=== PATIENT | female | born 2000 | race Caucasian/White ===

== ENCOUNTER 2023-06-19 08:01 | Emergency (ER) | payer OTHER, SELFPAY ==
[2023-06-19 08:03] VITALS: BP 118/77; PULSE 89; RESP 17; TEMP 36.7; O2SAT 99
--- NOTE | 2023-06-19 08:38 | DI.RAD_ITS ---
Exam(s) XR KNEE RT 3V AP,LAT,SUKUMAR EXAM: XR KNEE RT 3V AP,LAT,SUKUMAR CLINICAL HISTORY: right knee pain. TECHNIQUE: 2D digital imaging was performed. COMPARISON: No exams were available for comparison FINDINGS: 3 views No evidence of acute fracture or prominent joint effusion. No osseous lesions. No osteochondral def ects. No joint space narrowing. Bone density normal. IMPRESSION: No acute osseous findings in the knee. DATA REPOSITORY: RADIATION DOSE DELIVERED:
--- NOTE | 2023-06-19 09:19 | NUR.NOTE ---
Gave Referral to Care Management-Needs PCP establish care and routine follow up Nursing Note:
--- NOTE | 2023-06-20 20:11 | W.ED.GENAD ---
Discharge Plan Disposition Patient Disposition: Home Discharge Details Clinical Impression: Knee sprain Primary Care Provider: None,None ED Provider: Nellie Ojeda Home Meds and New Rx's Prescriptions: Continued omeprazole 20 mg capsule,delayed release(DR/EC) 20 mg PO DAILY melatonin 2.5 mg Tablet,Chewable 2.5 mg PO QHS Discharge Instructions Instructions: Knee Sprain (ED) Additional Instructions: Take ibuprofen and Tylenol as needed for pain Ice, elevate, rest Use your brace during the day, weight-bear as tolerated Follow-up with PCP or orthopedics for reassessment in 1 to 2 weeks and imaging at their discretion with persistent discomfort Stand Alone Forms: Work Release Referrals: Jesu Garcia MD [ [facility] STAFF PHYSICIAN] - Discharge Data Discharge Date/Time-TO BE ENTERED AT DEPARTURE: 06/19/23 09:28 Medical Decision Making 22-year-old female presenting with right knee injury, x-ray of right knee does not show evidence of acute abnormality radiology interpretation my review Placed in a right knee hinged splint Ibuprofen and Tylenol encouraged Return precautions reviewed and patient expressed understanding Repeat imaging in 1 week with persistent symptoms HPI General Date/Time Provider Initiated Documentation: 06/19/23 08:25. HPI Narrative: This 22-year-old female presents with right knee injury. She states her knee buckled inward. Now she is having pain with flexion and extension of her right knee. Related Data Home Medications Medication Instructions Recorded Confirmed omeprazole 20 mg capsule,delayed 20 mg PO DAILY 04/19/23 06/19/23 release melatonin 2.5 mg chewable tablet 2.5 mg PO QHS 06/19/23 06/19/23 Allergies Allergy/AdvReac Type Severity Reaction Status Date / Time oranges Allergy Uncoded 06/19/23 08:08 General Stated Complaint: Orthopedic JOVANA: 4 PFSH All Active Problems (Updated 06/19/23 @ 09:20 by PAULA Gardner) Knee sprain (Acute) Social History Smoking/Tobacco Use Status: Never Smoking risk assessment performed?: Yes Alcohol Intake: never Drug use: Never Substance use type: does not use Course Vital Signs Vital signs: Vital Signs Temperature 36.7 C 06/19/23 08:03 Pulse 89 06/19/23 08:03 Respiratory Rate 17 06/19/23 08:03 Blood Pressure 118/77 06/19/23 08:03 Pulse Oximetry 99 06/19/23 08:03 Temperature 36.7 C 06/19/23 08:03 Temperature Source Temporal Artery Scan 06/19/23 08:03 Pulse 89 06/19/23 08:03 Respiratory Rate 17 06/19/23 08:03 Respiratory Effort Normal 06/19/23 08:06 Blood Pressure 118/77 06/19/23 08:03 Blood Pressure Position Sitting 06/19/23 08:03 Pulse Oximetry 99 06/19/23 08:03 Oxygen Delivery Method Room Air 06/19/23 08:03 Oxygen Flow Rate 0 06/19/23 08:03 Pain Level 2 06/19/23 08:06
== END 2023-06-19 09:28 | disposition home or self-care (01) ==
PROVIDERS: Emergency Provider Physician Assistant
DX: S83.91XA Sprain of unspecified site of right knee, initial encounter (principal); X58.XXXA Exposure to other specified factors, initial encounter
CPT/HCPCS: 29515; 73562; 99283

== ENCOUNTER 2023-07-03 11:49 | Outpatient (CLI) | payer OTHER, SELFPAY ==
--- NOTE | 2023-07-03 11:15 | DI.RAD_ITS ---
Exam(s) XR KNEE RT 2V AP,LAT EXAM: XR KNEE RT 2V AP,LAT CLINICAL HISTORY: RIGHT KNEE PAIN. TECHNIQUE: 2D digital imaging was performed of the right knee. Two views obtained. Merchant, and AP views were obtained. COMPARISON: CR XR KNEE RT 3V AP,LAT,SUKUMAR from 06/19/2023 FINDINGS: BONES: No acute fracture is present. No bony destructive lesion is seen. JOINTS: The knee is normally aligned. SOFT TISSUE: Normal. IMPRESSION: No acute abnormality is seen on this limited examination. DATA REPOSITORY: RADIATION DOSE DELIVERED:
== END 2023-07-03 11:50 | disposition home or self-care (01) ==
LOC: DIORS 11:49
PROVIDERS: PCP Physician Assistant Medical; Visit Provider Physician Assistant
DX: M25.561 Pain in right knee (principal)
CPT/HCPCS: 73560

== ENCOUNTER 2023-10-18 12:15 | Outpatient (REF) | payer OTHER, SELFPAY ==
--- NOTE | 2023-10-18 11:45 | PAPFT_PTH ---
PATIENT: Katlin Miguel LOC: NCN #:[id number] AGE/SX: 23/F ROOM: RE10/18/[address]: Emily Fontanez : 2000 BED: DIS: 10/18/2023 SPEC #: [id number] RECD: 10/18/23 18:20 STATUS: CANDIS REChristo #: [id number] BRANDIN: 10/18/23 11:[address]: Emily Fontanez DEPT: [facility] Cytology RECD BY: Nellie Bearden Tissues: 1 - CX/ENDOCX FOR PAP SMEARS Procedures: PAP THIN PREP/UVM Screening Comments: [id number]
[2023-10-18 16:55] LABS: Calculated LDL 138 mg/dL (<100); Cholesterol 195 mg/dL (<200); Glucose 89 mg/dL (74-106); HDL Cholesterol 37 mg/dL (40-60); TSH (W/Ref FT4) 1.35 uIU/mL (0.36-3.74); Triglyceride 104 mg/dL (<150)
[2023-10-18 17:03] LABS: Vitamin D 25 Total 11.2 ng/mL (30-100)
== END 2023-10-18 12:16 | disposition home or self-care (01) ==
LOC: NCHCN 12:15
PROVIDERS: PCP Nurse Practitioner Family; Visit Provider Nurse Practitioner Family
DX: Z00.00 Encounter for general adult medical examination without abnormal findings (principal)
CPT/HCPCS: 80061; 82306; 82947; 88142; 84443

== ENCOUNTER 2024-04-22 11:41 | Outpatient (REF) | payer OTHER, SELFPAY ==
[2024-04-22 16:19] LABS: Abs Immature Grans 0.01 10^3/uL (0.0-0.06); Absolute Basophil Count 0.04 10^3/uL (0.0-0.2); Absolute Eosinophil Count 0.07 10^3/uL (0.0-0.7); Absolute Lymphocyte Count 1.71 10^3/uL (1.2-3.4); Absolute Neutrophil Count 3.81 10^3/uL (1.2-6.7); Basophils % 0.7 %; Eosinophils % 1.2 %; HCT 32.5 % (36.0-46.0); HGB 9.5 g/dL (11.2-15.7); Immature Grans % 0.2 %; Lymphocytes % 28.3 %; MCH 20.4 pg (27.0-33.0); MCHC 29.2 % (32.0-36.0); MCV 70 fL (80-95); MPV 11.4 fL (8.0-11.0); Monocytes % 6.6 %; Platelet Count 285 10^3/uL (130-400); RBC 4.66 10^6/uL (3.93-5.22); RDW 17.2 % (11.7-14.6); RDW-SD 42.5 fL; WBC 6.04 10^3/uL (4.4-10.8)
[2024-04-22 16:21] LABS: Anion Gap 6.9 mmol/L (3-11); BUN 9 mg/dL (7-18); CO2 28.1 mmol/L (21.0-32.0); CREATININE 0.8 mg/dL (0.55-1.02); Calcium 9.2 mg/dL (8.5-10.1); Chloride 104 mmol/L (98-107); Estimated GFR 106.11 (mL/min/1.73m2); Glucose 103 mg/dL (74-106); Potassium 3.6 mmol/L (3.5-5.1); Sodium 139 mmol/L (136-145); Vitamin D 25 Total 19.1 ng/mL (30-100)
[2024-04-22 17:14] LABS: Anisocytosis 1+; Diff Comment RBC Morph Reviewed; Hypochromasia 1+; Microcytosis 1+
[2024-04-23 10:03] LABS: Iron 21 ug/dL (50-170)
[2024-04-23 10:16] LABS: Ferritin 7 ng/mL (8-252)
== END 2024-04-22 11:42 | disposition home or self-care (01) ==
LOC: NCHCN 11:41
PROVIDERS: PCP Nurse Practitioner Family; Visit Provider Physician Assistant Medical
DX: R60.9 Edema, unspecified (principal); E55.9 Vitamin D deficiency, unspecified; D64.9 Anemia, unspecified
CPT/HCPCS: 80048; 82306; 82728; 83540; 85025

== ENCOUNTER 2024-06-03 15:33 | Outpatient (REF) | payer OTHER, SELFPAY ==
[2024-06-03 21:56] LABS: HGB 10.5 g/dL (11.2-15.7); MCH 22.1 pg (27.0-33.0); MCV 74 fL (80-95); RBC 4.76 10^6/uL (3.93-5.22); RDW-SD 53.7 fL; WBC 8.95 10^3/uL (4.4-10.8)
[2024-06-03 22:48] LABS: RDW 20.8 % (11.7-14.6)
[2024-06-03 23:17] LABS: Vitamin D 25 Total 21.4 ng/mL (30-100)
[2024-06-03 23:48] LABS: Iron 101 ug/dL (50-170); Total Iron Binding Capacity 362 ug/dL (250-450)
[2024-06-04 11:55] LABS: Ferritin 17 ng/mL (8-252)
== END 2024-06-03 15:34 | disposition home or self-care (01) ==
LOC: NCHCN 15:33
PROVIDERS: PCP Nurse Practitioner Family; Visit Provider Physician Assistant Medical
DX: E61.1 Iron deficiency (principal); E55.9 Vitamin D deficiency, unspecified
CPT/HCPCS: 82306; 85027; 82728; 83540; 83550

== ENCOUNTER 2024-06-15 14:29 | Emergency (ER) | payer OTHER, SELFPAY ==
[2024-06-15 14:31] VITALS: BP 130/82; PULSE 101; RESP 14; TEMP 36.2; O2SAT 98
--- NOTE | 2024-06-15 15:00 | ED.GENADUL_ITS ---
Discharge Plan Disposition Patient Disposition: Home Condition: Stable Discharge Details Clinical Impression: Acute streptococcal pharyngitis Primary Care Provider: Emily Murray ED Provider: Belen Rubio Home Meds and New Rx's Prescriptions: New amoxicillin-pot clavulanate 875-125 mg tablet 1 tab PO BID 10 Days Qty: 20 0RF No Action omeprazole 20 mg capsule,delayed release(DR/EC) 20 mg PO DAILY melatonin 2.5 mg Tablet,Chewable 2.5 mg PO QHS ergocalciferol (vitamin D2) 1,250 mcg (50,000 unit) capsule 1,250 mcg PO .weekly Patient Comments: TAKE 1 CAPSULE BY MOUTH EVERY WEEK cholecalciferol (vitamin D3) 50 mcg (2,000 unit) capsule 50 mcg PO DAILY Patient Comments: TAKE ONE CAPSULE BY MOUTH EVERY DAY DIRECTED Discharge Instructions Instructions: Strep Throat ED Additional Instructions: Gargle with warm salt water 3 times daily. Please take Tylenol or Ibuprofen with food every 4-6 hours as needed for pain and swelling. You were given a steroid here in the department to help with decreasing the inflammation in your throat. At this time the rapid swab is negative however it has been sent for culture and based on your clinical presentation and symptoms I will treat you as if you do have strep throat. Monoscreen is negative. Follow up with primary care provider in 3-5 days. Return to ED sooner if any wor sening or concerns. Stand Alone Forms: Work Release Referrals: Emily Murray [Primary Care Provider] - 3 days Discharge Data Discharge Date/Time-TO BE ENTERED AT DEPARTURE: 06/15/24 15:46 HPI General Mode of arrival: ambulatory . Date/Time Provider Initiated Documentation: 06/15/24 14:35 . Limitations to Documentation: no limitations . Information obtained by: patient, RN notes reviewed and old records reviewed . HPI Narrative: 23-year-old female presents to the ER with a chief complaint of sore throat swollen tonsils which began on Sunday. Subjective fever and chills. Patient does have muffled voice, hard time swallowing her secretions. Denies cough, lungs are CTA. Related Data Home Medications ?Medication ?Instructions ?Recorded ?Confirmed omeprazole 20 mg capsule,delayed 20 mg PO DAILY 04/19/23 06/15/24 release melatonin 2.5 mg chewable tablet 2.5 mg PO QHS 06/19/23 06/15/24 amoxicillin 875 mg-potassium 1 tab PO BID 10 days #20 tabs 06/15/24 clavulanate 125 mg tablet cholecalciferol (vitamin D3) 50 50 mcg PO DAILY 06/15/24 06/15/24 mcg (2,000 unit) capsule ergocalciferol (vitamin D2) 1,250 1,250 mcg PO .weekly 06/15/24 06/15/24 mcg (50,000 unit) capsule Previous Rx's ?Medication ?Instructions ?Recorded amoxicillin 875 mg-potassium 1 tab PO BID 10 days #20 tabs 06/15/24 clavulanate 125 mg tablet Allergies Allergy/AdvReac Type Severity Reaction Status Date / Time oranges Allergy Swelling/Ed Uncoded 06/15/24 14:34 talat General Stated Complaint: Sorethroat JOVANA: 4 Review of Systems ENT Ears, Nose, Mouth, and Throat: Reports change in voice, Reports sore throat and Reports throat swelling Allergic/Immunologic Allergic/Immunologic: Reports throat swelling Exam Const General: well developed and well groomed Nutritional Appearance: obese Orientation: alert, awake and oriented x3 HENMT Head: normal to inspection Ears: hearing grossly normal bilaterally and external ears normal General nose exam: external nose normal Face and sinus: normal facial exam Mouth: oral mucosae normal, lip normal and tongue normal Teeth and gingiva: dentition normal Throat: abnormal tonsil bilaterally exudates and hypertrophy 2+, posterior oropharynx abnormal erythema and exudates, uvula not displaced and no uvular edema Neck Neck: normal visual inspection and full ROM Resp Effort & Inspection: normal respiratory effort Auscultation: clear to auscultation bilaterally Cardio Rhythm: regular rhythm Heart Sounds: S1 normal and S2 normal Course Vital Signs Vital signs: Vital Signs Temperature 36.2 C L 06/15/24 14:31 Pulse 101 H 06/15/24 14:31 Respiratory Rate 14 06/15/24 14:31 Blood Pressure 130/82 06/15/24 14:31 Pulse Oximetry 98 06/15/24 14:31 Temperature 36.2 C L 06/15/24 14:31 Temperature Source Oral 06/15/24 14:31 Pulse 101 H 06/15/24 14:31 Respiratory Rate 14 06/15/24 14:31 Blood Pressure 130/82 06/15/24 14:31 Blood Pressure Position Sitting 06/15/24 14:31 Pulse Oximetry 98 06/15/24 14:31 Oxygen Delivery Method Room Air 06/15/24 14:31 Oxygen Flow Rate 0 06/15/24 14:31 Pain Level 7 06/15/24 14:31 Lab/Test Results Lab/Test Results: 06/15/24 14:33 Pharynx Group A Streptococcus Culture - Pending POC Strep Test-LIYAH(Rapid) Start: 06/15/24 14:36 Freq: .Rapid Strep Test Status: Active Protocol: Document 06/15/24 14:47 CB (Rec: 06/15/24 14:47 [id number]) Strep test-LIYAH(Rapid)-POC POC-Strep test-LIYAH (Rapid) Negative POC-Strep test-LIYAH (Rapid) Negative Medical Decision Making 23-year-old female presents to the ER with a chief complaint of sore throat swollen tonsils which began on Sunday. Subjective fever and chills. Patient does have muffled voice, hard time swallowing her secretions. Denies cough, lungs are CTA. Negative rapid strep, however patient does have positive exudate 2+ bilateral tonsils noted. Will give Augmentin and dexamethasone here in the department. Schuyler test ordered. And swab was sent for a culture. Schuyler negative. Will treat as strep. Patient given Augmentin here and a prescription at discharge. This text was generated using [employer] dictation system, please disregard any oddities of phrase or misspellings. Lab Data Lab results reviewed: Yes I reviewed the patient's lab results. Labs: 06/15/24 14:33 Pharynx Group A Streptococcus Culture - Pending Laboratory Tests Range/Units 06/15/24 15:07 Monoscreen (Negative) Negative Quality:SDOH Health Related Social Needs: No Data to Display PFSH All Active Problems (Updated 06/15/24 @ 15:24 by Belen Rubio NP) Acute streptococcal pharyngitis (Acute) Lateral dislocation of right patella (Acute 06/19/23) Social History Smoking/Tobacco Use Status: Never Smoking risk assessment performed?: Yes Alcohol Intake: never Drug use: Never Substance use type: does not use Housing: apartment Current gender identity: female Do you feel safe at home: Yes Do you feel safe in your relationship?: Yes
[2024-06-15] MEDS: Amoxicillin 875/Clav. 125 TAB PO (15:15)
[2024-06-15] MEDS: Dexamethasone 10 MG/ML VIAL PO (15:15)
[2024-06-15 15:16] VITALS: BP 130/82; PULSE 101; RESP 16; TEMP 36.2; O2SAT 98
[2024-06-15 15:21] LABS: Mono Screening Negative (Negative)
[2024-06-15 15:45] VITALS: BP 130/82; PULSE 90; RESP 16; TEMP 36.2; O2SAT 98
== END 2024-06-15 15:46 | disposition home or self-care (01) ==
PROVIDERS: Emergency Provider Registered Nurse Emergency; PCP Nurse Practitioner Family
DX: J02.0 Streptococcal pharyngitis (principal); H92.03 Otalgia, bilateral; R50.9 Fever, unspecified
CPT/HCPCS: 36415; 99283; 86308; 87081; J1100

== ENCOUNTER 2024-10-01 13:55 | Outpatient (CLI) | payer OTHER, SELFPAY ==
[2024-10-01 13:43] LABS: HCT 38.7 % (36.0-46.0); HGB 12.4 g/dL (11.2-15.7); MCH 26.2 pg (27.0-33.0); MCV 82 fL (80-95); MPV 11.1 fL (8.0-11.0); Platelet Count 206 10^3/uL (130-400); RBC 4.74 10^6/uL (3.93-5.22); RDW 14.2 % (11.7-14.6); RDW-SD 42.2 fL; WBC 9.43 10^3/uL (4.4-10.8)
[2024-10-01 14:21] LABS: Ferritin 29 ng/mL (8-252); Vitamin D 25 Total 24.8 ng/mL (30-100)
== END 2024-10-01 13:56 | disposition home or self-care (01) ==
LOC: LBO 13:55
PROVIDERS: PCP Nurse Practitioner Family; Visit Provider Physician Assistant Medical
DX: E61.1 Iron deficiency (principal); E55.9 Vitamin D deficiency, unspecified
CPT/HCPCS: 36415; 82306; 85027; 82728

== ENCOUNTER 2024-10-30 15:57 | Emergency (ER) | payer OTHER, SELFPAY ==
[2024-10-30 16:01] VITALS: BP 155/84; PULSE 78; RESP 20; TEMP 36.6; O2SAT 99
--- NOTE | 2024-10-30 16:15 | DI.RAD_ITS ---
Exam(s) XR LUMBAR SPINE COMPLETE EXAM: XR LUMBAR SPINE COMPLETE CLINICAL HISTORY: Low back pain. TECHNIQUE: 2D digital imaging was performed of the lumbar spine. Six images were obtained. AP, lat eral, right oblique, left oblique and L5-S1 spot views were obtained. COMPARISON: No exams were available for comparison FINDINGS: BONES: No fracture or destructive lesion. Vertebral bodies are unremarkable. No facet hypertrophy nina ntified. DISKS: Intervertebral disc spaces are maintained. ALIGNMENT: Lumbar spinal alignment is within normal limits. No spondylolysis or spondylolisthesis. SOFT TISSUE: Normal. IMPRESSION: Unremarkable radiographs of the lumbar spine. DATA REPOSITORY: RADIATION DOSE DELIVERED:
--- OUTSIDE RECORDS SUMMARY | 2024-10-30 16:21 | XMS_ITS | Encounter Summary ---
Author Organization [facility] [address] Care Team Providers Care Water Reclamation Systems Operator Name Role Phone Unavailable Primary Care Provider Unavailabl e Reason for Referral * Consultation (Routine) - Closed Specialty Diagnoses / Procedures Referred By Danna bustillos Referred To Contact Vascular Surgery Diagnoses Phlebitis and thrombophlebitis of unspecified site ROUTINE, CHRISTOFER, LLE Ilsa Catherine PA [address] [place] [address] [facility] V[facility] Surg [address] [place] [address] Referral ID Status Reason Start Date Expiration Date V isits Requested Visits Authorized [id number] Closed Consult, Test & Treat PCP Updated and/or Approved 06/04/2024 06/04/2025 1 1 Encounter Details Date Type Department Care Team (Latest Contact Info) Description 06/04/2024 Transcribe Orders eDH Incoming Referrals [phone] Ilsa Chatman PA [address] [place], [place] [id number] Phlebitis and thrombophlebitis of unspecified site Social History Tobacco Use Types Packs/Day Years Used Date Smoking Tobacco: Never Assessed Sex and Gender Information Value Date Recorded Sex Assigned at Not on file Gender Identity Not on file Sexual Orientation Not on file documented as of this encounter Plan of Treatment Scheduled Referrals Name Type Priority Associated Diagnoses Orde r Schedule Referral to Vascular Surgery Outpatient Referral Routine Phlebitis and thrombophlebitis of unspecified site Ordered: 06/04/2024 documented as of this encounter Visit Diagnoses Diagnosis Phlebitis and thrombophlebitis of unspecified site documented in this encounter
--- OUTSIDE RECORDS SUMMARY | 2024-10-30 16:21 | XMS_ITS | Encounter Summary ---
Author Organization [facility] Address [address] [place] [address] Care Team Providers Care Motorcycle Racer Name Role Phone Unavailable Primary Care Provider Unavailabl e Encounter Details Date Type Department Care Team (Latest Contact Info) Description 10/23/2023 Lab Requisition [facility] Pathology & Laboratory Medicine - [facility] [address] [place] [address] Emily Fontanez NP [address] [place] [address] Encounter for gynecological examination (general) (routine) without abnormal findings Social History Tobacco Use Types Packs/Day Years Used Date Smoking Tobacco: Never Assessed Comments Unknown Sex and Gender Information Value Date Recorded Sex Assigned at Not on file Legal Sex Female 14:25 EDT Gender Identity Not on file Sexual Orientation Not on file documented as of this encounter Plan of Treatment Not on file documented as of this encounter Procedures Procedure Name Priority Date/Time Associated Diagnosis Comments PAP TEST Today 10/18/2023 11:45 EST Encounter for gynecological examination (general) (routine) without abnormal findings documented in this encounter Results * PAP TEST (10/18/2023 11:45 EST) Specimens A. Cervix and/or Endocervix , ThinPrep Imaging System with Manual Evaluation 11/01/2023 15:59 EST [facility] Specimen Adequacy Satisfactory for Evaluation - transformation zone component present 11/01/2023 15:59 EST [facility] General Categorization Negative for intraepithelial lesion or malignancy 11/01/2023 15:59 EST [facility] Attestation . 11/01/2023 15:59 EST [facility] at 1559 Clinical History See below 11/01/19 15:59 EST [facility] Performing Lab [facility] 11/01/2023 15:59 EST [facility] Scanned Images 11/01/2023 15:59 EST [facility] Pap Test CERVIX UTERI STRUCTURE / Unknown 10/18/2023 11:45 EST 10/23/2023 8:37 EST us Emily Fontanez NP PATHOLOGY ORDERABLES Final Resul t [facility] [address] [place] [address] documented in this encounter Visit Diagnoses Diagnosis Encounter for gynecological examination (general) (routine) without abnormal findings documented in this encounter
--- OUTSIDE RECORDS SUMMARY | 2024-10-30 16:21 | XMS_ITS | Encounter Summary ---
Author Organization [facility] Address [facility] [place] [address] Care Team Providers Care Forestry Technician Name Role Phone Unavailable Primary Care Provider Unavailabl e Reason for Referral * Diagnostic Test (Routine) - Closed Specialty Diagnoses / Procedures Referred By Danna bustillos Referred To Contact Diagnoses Edema of lower extremity Procedures LE Unilateral Valvular Incomp Study Venita Abbott APRN [facility] [place] [address] [facility] [address] [address] Referral ID Status Reason Start Date Expiration Date V isits Requested Visits Authorized [id number] Closed Specialty Service Requested 06/05/2024 06/05/2025 1 1 Encounter Details Date Type Department Care Team (Late st Contact Info) Description 06/05/2024 Orders [place] [address] Venita Abbott MANAGER BUSINESS INTELLIGENCE [facility] [place] [address] Edema of lower extremity Social History Tobacco Use Types Packs/Day Years Used Date Smoking Tobacco: Never Assessed Sex and Gender Information Value Date Recorded Sex Assigned at Not on file Gender Identity Not on file Sexual Orientation Not on file documented as of this encounter Plan of Treatment Not on file documented as of this encounter Results * LE Unilateral Valvular Incomp Study (07/25/2024 1:39 PM EDT) VB Text Report Department: Vascular Surgery Lab Patient: [id number] (MARIA DEL CARMEN SARMIENTO) CPT: 34328 Referring Physician: VENITA ABBOTT ?? Phone: Indications: ??LLE swelling; ? assess for reflux Patient Positioning: ??Reverse Trendelenburg Findings: Left ? Reflux?Diameter (mm) ??Depth (mm) ?? Common Femoral Vein ?Reflux ? Femoral Vein ? Competent ? Popliteal ?Competent ? Posterior Tibial Vein ??Competent ? GSV, Near SFJ ?Reflux ? GSV, Proximal Thigh ?Competent ?4.5 ?17.9 ?? GSV, Mid Thigh ? Competent ?3.7 ?25.8 ?? GSV, Distal Thigh ?Reflux ? 7.8 ?25.3 ?? GSV, ??Knee ? Competent ?6.5 ?23.5 ?? GSV Prox Calf ?Competent ?4.3 ?20.4 ?? GSV, Mid Calf ?Competent ?2.7 ?24.0 ?? GSV, Distal Calf ? Competent ?3.6 ?22.6 ?? SSV ?Competent ?1.7 ?19.9 ?? Interpretation: LEFT: Patent common femoral vein and popliteal vein with spontaneous, respirophasic Doppler waveforms that respond normally to augmentation maneuvers. The common femoral vein, saphenofemoral junction, femoral vein through the thigh and popliteal vein are fully compressible. Patent posterior tibial veins with no evidence of thrombus. Peroneal veins are not adequately visualized to exclude non-occlusive thrombus. There is reflux in the common femoral vein (>1.4 seconds) consistent with deep venous valvular incompetence. There is no deep venous reflux in the femoral vein in the thigh, popliteal vein and calf veins. There is reflux in the saphenofemoral junction (>0.6 seconds) and in the great saphenous vein at distal thigh (>4.4 seconds) consistent with superficial venous valvular incompetence. The small saphenous vein is competent. Comparison: ?No previous study in our vascular lab database for comparison. Electronically Signed by: PATRIA JONES on 2024-07-30 11:36:51 AM [facility] VB Text Report End of Report [facility] 07/25/2024 1:39 PM EDT Venita Abbott APRN VASCULAR ORDERABLES [facility] documented in this encounter Visit Diagnoses Diagnosis Edema of lower extremity Edema documented in this encounter
--- OUTSIDE RECORDS SUMMARY | 2024-10-30 16:21 | XMS_ITS | Encounter Summary ---
Author Organization [facility] Address [facility] [place] [address] Care Team Providers Care Stock Worker And Deliverer Name Role Phone None Primary Care Provider Unavailabl e Reason for Visit * Diagnostic Test (Routine) - Closed Specialty Diagnoses / Procedures Referred By Danna t Referred To Contact Diagnoses Edema of lower extremity Procedures LE Unilateral Valvular Incomp Study Venita Abbott, MATH INTERVENTIONIST [facility] [place] [address] [facility] Vascular Lab [address] [place] [address] Referral ID Status Reason Start Date Expiration Date V isits Requested Visits Authorized [id number] Closed Specialty Service Requested 06/05/2024 06/05/2025 1 1 Encounter Details Date Type Department Care Team (Late st Contact Info) Description 07/25/2024 1:30 PM EDT Tech [place] [address] Elisabeth Hernandez Edema of lower extremity Social History Tobacco [...] Procedure Name Priority Date/Time Associated Diagnosis Comments UNLATERAL VALVULAR INCOMP Routine 07/25/2024 1:39 PM EDT Edema of lower extremity documented in this encounter Results * LE Unilateral Valvular Incomp Study (07/25/2024 1:39 PM EDT) VB Text Report Department: Vascular Surgery Lab Patient: [id number] (MARIA DEL CARMEN SARMIENTO) CPT: 44414 Referring Physician: VENITA ABBOTT ?? Phone: Indications: [...] lower extremity Edema documented in this encounter Care Teams Stock Worker And Deliverer Relationship Specialty Start Date End Date None None PCP - General 07/25/24 documented as of this encounter
--- OUTSIDE RECORDS SUMMARY | 2024-10-30 16:21 | XMS_ITS | Clinical Summary ---
Author Organization [facility] Address [address] [place] [address] Care Team Providers Care Meter Reader Chief Name Role Phone Unavailable Primary Care Provider Unavailabl e Social History Tobacco Use Types Packs/Day Years Used Date Smoking Tobacco: Never Assessed Comments Unknown Sex and Gender Information Value Date Recorded Sex Assigned at Not on file Legal Sex Female 14:25 EDT Gender Identity Not on file Sexual Orientation Not on file Plan of Treatment Health Maintenance Due Date Last Done Comments Hepatitis C Screen 2000 Hepatitis B Vaccine (1 of 3 - 19+ 3-dose series) 09/12 COVID-19 Vaccine ( season) 2024
--- OUTSIDE RECORDS SUMMARY | 2024-10-30 16:21 | XMS_ITS | Encounter Summary ---
[place] [address] Care Team Providers Care Ergonomics Technician Name Role Phone None Primary Care Provider Unavailabl e Encounter Details Date Type Department Care Team (Latest Contact Info) Description 07/25/2024 Travel Social History Tobacco Use Types Packs/Day Years Used Date Smoking Tobacco: Never Assessed Sex and Gender Information Value Date Recorded Sex Assigned at Not on file Gender Identity Not on file Sexual Orientation Not on file documented as of this encounter Plan of Treatment Not on file documented as of this encounter Visit Diagnoses Not on filedocumented in this encounter Care Teams Ergonomics Technician Relationship Specialty Start Date End Date None None PCP - General 07/25/24 documented as of this encounter
--- OUTSIDE RECORDS SUMMARY | 2024-10-30 16:21 | XMS_ITS | Clinical Summary ---
Author Organization [facility] Address [facility] [place] [address] Care Team Providers Care School Cafeteria Head Cook Name Role Phone None Primary Care Provider Unavailabl e Social History Tobacco Use Types Packs/Day Years Used Date Smoking Tobacco: Never Assessed Sex and Gender Information Value Date Recorded Sex Assigned at Not on file Gender Identity Not on file Sexual Orientation Not on file Plan of Treatment Health Maintenance Due Date Last Done Comments Chlamydia Screening 2015 HPV vaccine (1 - 3-dose series) 2015 HIV screen 2018 Hepatitis C Screening 2018 Hepatitis B vaccine (0-59 yrs) (1) 2019 Tetanus/Diphtheria/Pertussis Vaccines (1 - Tdap) 09/12 PAP Smear 2021 Covid-19 Vaccine ( season) 2024 Influenza (Flu) vaccine (1 o f 1 - Influenza standard series) 06/15/2024 Care Teams School Cafeteria Head Cook Relationship Specialty Start Date End Date None None PCP - General 07/25/24
--- OUTSIDE RECORDS SUMMARY | 2024-10-30 16:21 | XMS_ITS | Encounter Summary ---
Author Organization [facility] Address [address] [place] [id number] Care Team Providers Care Lead Nuclear Medicine Technologist Name Role Phone Unavailable Primary Care Provider Unavailabl e Encounter Details Date Type Department Care Team (Late st Contact Info) Description 05/03/2021 Lab Requisition [facility] Pathology & Laboratory Medicine - [facility] [address] [place] [address] Outr Resulting Lab, Provider Social History Tobacco Use Types Packs/Day Years [...] Procedure Name Priority Date/Time Associated Diagnosis Comments VARICELLA IGG ANTIBODY Routine 05/03/2021 12:07 EDT documented in this encounter Results * VARICELLA IGG ANTIBODY (05/03/2021 12:07 EDT) Varicella IgG Ab Negative See Note 05/04/2021 11:[address] [facility] Comment:Absence of detectabl e Varicella Zoster virus IgG antibodies. A negative result generally indicates no detectable antibody, but does not rule out acute infection. If VZV exposure is suspected, a second sample should be collected and tested no less than one or two weeks later. Blood VENOUS BLOOD / Unknown 05/03/2021 12:07 EDT 05/03/2021 20:12 EDT us Provider Outr Resulting Lab IMMUNOLOGY AND SEROL OGY ORDERABLES Final Result [facility] [address] [place] [address] documented in this encounter Visit Diagnoses Not on filedocumented in this encounter
--- OUTSIDE RECORDS SUMMARY | 2024-10-30 16:21 | XMS_ITS | Referral Summary ---
Author Organization [facility] Address [address] [place] [address] Care Team Providers Care Senior Php Web Developer Name Role Phone Unavailable Primary Care Provider Unavailabl e Social History Tobacco Use Types Packs/Day Years Used Date Smoking Tobacco: Never Assessed Comments Unknown Sex and Gender Information Value Date Recorded Sex Assigned at Not on file Legal Sex Female 14:25 EDT Gender Identity Not on file Sexual Orientation Not on file Plan of Treatment Not on file
--- OUTSIDE RECORDS SUMMARY | 2024-10-30 16:21 | XMS_ITS | Encounter Summary ---
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 Role Phone Unavailable Primary Care Provider Unavailabl e Encounter Details Date Type Department Care Team (Late st Contact Info) Description 07/22/2024 Telephone [place] [address] Srinivasan Chaney Social History Tobacco Use Types Packs/Day Years Used Date Smoking Tobacco: Never Assessed Sex and Gender Information Value Date Recorded Sex Assigned at Not on file Gender Identity Not on file Sexual Orientation Not on file documented as of this encounter Miscellaneous Notes * Telephone Encounter - Srinivasan Chaney - 07/22/2024 9:54 AM EDT Attempted call x2 to reschedule 07/25 provider visit. Provider has had a schedule change and will not be in clinic that afternoon. Voicemail is full and no option to leave message. Also had attemptedcall Wednesday 07/18 and voicemail was full. Patient does not have - set up and has no emergency oralternate contacts listed. Patient will need to reschedule her provider visit. lle valve incomp-LLE swelling new patientLLE swelling, reported superficial thrombophlebitis (CHRISTOFER) documented in this encounter Plan of Treatment Not on file documented as of this encounter Visit Diagnoses Not on filedocumented in this encounter
--- NOTE | 2024-10-30 16:28 | W.ED.GENAD ---
Discharge Plan Disposition Patient Disposition: Home Condition: Stable Discharge Details Clinical Impression: Lumbar back pain Primary Care Provider: Ilsa Chatman ED Provider: Belen Rubio Home Meds and New Rx's Prescriptions: Continued omeprazole 20 mg capsule,delayed release(DR/EC) 20 mg PO DAILY ferrous sulfate [FeroSul] 325 mg (65 mg iron) tablet 325 mg PO DAILY fluoxetine 10 mg capsule 10 mg PO DAILY furosemide 20 mg tablet 20 mg PO DAILY melatonin 2.5 mg Tablet,Chewable 2.5 mg PO QHS cholecalciferol (vitamin D3) 50 mcg (2,000 unit) capsule 50 mcg PO DAILY Patient Comments: TAKE ONE CAPSULE BY MOUTH EVERY DAY DIRECTED Discharge Instructions Instructions: Managing acute pain at home, Low Back Pain ED Additional Instructions: Please take the muscle relaxers as prescribed. You are given 3 tablets here in the department. Alternate ice and heat. Continue taking Tylenol or ibuprofen as needed. No evidence of anything significant on the x-rays or with your urine. Follow up with primary care provider in 3-5 days. Return to ED sooner if any worsening or concerns. Stand Alone Forms: Work Release Referrals: Ilsa Chatman PA [Primary Care Provider] - 5 days Discharge Data Discharge Date/Time-TO BE ENTERED AT DEPARTURE: 10/30/24 17:39 HPI General Mode of arrival: ambulatory. Date/Time Provider Initiated Documentation: 10/30/24 16:01. Limitations to Documentation: no limitations. Information obtained by: patient, RN notes reviewed and old records reviewed. HPI Narrative: 24-year-old female presents to the ER with a chief complaint of left lower back pain for the last week and a half. She reports she may have been lifting some heavy boxes. Reports intermittent radiation into her legs. She reports problems sleeping due to the pain. Denies any dysuria or problems urinating. Denies any loss of bowel or bladder, control, no saddle anesthesia. She has been taking ibuprofen and using a massage gun. Related Data Home Medications ?Medication ?Instructions ?Recorded ?Confirmed omeprazole 20 mg capsule,delayed 20 mg PO DAILY 04/19/23 10/30/24 release melatonin 2.5 mg chewable tablet 2.5 mg PO QHS 06/19/23 10/30/24 cholecalciferol (vitamin D3) 50 50 mcg PO DAILY 06/15/24 10/30/24 mcg (2,000 unit) capsule ferrous sulfate 325 mg (65 mg 325 mg PO DAILY 10/22/24 10/30/24 iron) tablet (FeroSul) fluoxetine 10 mg capsule 10 mg PO DAILY 10/22/24 10/30/24 furosemide 20 mg tablet 20 mg PO DAILY 10/22/24 10/30/24 Allergies Allergy/AdvReac Type Severity Reaction Status Date / Time mint AdvReac Mild Headache Verified 10/30/24 16:13 oranges Allergy Swelling/Ed Uncoded 10/30/24 16:13 talat General Stated Complaint: Nk/Back Pain JOVANA: 4 Review of Systems All systems reviewed & are unremarkable except as noted in HPI and below Musculoskeletal Musculoskeletal: Reports as per HPI, Reports back pain, Reports radiating pain into limb and Reports stiffness Exam Narrative Exam Narrative: Constitutional: Alert and oriented x3. Appears stated age. Normal body habitus. Head: Normocephalic, no trauma. Eyes: Pupils PERRL, Red reflex noted, EOM's intact. Eyelids symmetrical without lesions, discharge, or swelling. ENT: Bilateral TM's WNL, External ear normal to inspection, no mastoid TTP, swelling, or erythema, Nasal turbinates WNL, no nasal discharge. Normal dentition, Posterior pharynx WNL, no exudate. Chest: RRR, Normal S1, S2, distal pulses intact. Resp: Lungs clear to auscultation bilaterally, no wheezes, rales, or rhonchi. Abdomen: Soft, non-distended, Normoactive bowel sounds all 4 quads. Musculoskeletal: Normal gait, Moves all 4 extremities without difficulty. Tenderness with palpation to left paraspinous lower back. No midline tenderness. Skin: No suspicious rashes or lesions. Capillary refill less than 2 sec. Neurologic: Cranial nerves II-XII intact. Alert and oriented x 3. Motor: No deficits noted. Sensory: Intact bilaterally all 4 extremities. Hematologic/Lymphatic: No ecchymosis, no lymphadenopathy. Course Vital Signs Vital signs: Vital Signs Temperature 36.6 C 10/30/24 16:01 Pulse 78 10/30/24 16: Respiratory Rate 20 10/30/24 16:01 Blood Pressure 155/84 H 10/30/24 16:01 Pulse Oximetry 99 10/30/24 16:01 Temperature 36.6 C 10/30/24 16:01 Temperature Source Tympanic 10/30/24 16:01 Pulse 78 10/30/24 16:01 Respiratory Rate 20 10/30/24 16:01 Blood Pressure 155/84 H 10/30/24 16:01 Blood Pressure Position Sitting 10/30/24 16:01 Pulse Oximetry 99 10/30/24 16:01 Oxygen Delivery Method Room Air 10/30/24 16:01 Oxygen Flow Rate 0 10/30/24 16:01 Pain Level 6 10/30/24 16:11 Lab/Test Results Lab/Test Results: POC- Test(urine) Negative Medical Decision Making 24-year-old female presents to the ER with a chief complaint of left lower back pain for the last week and a half. She reports she may have been lifting some heavy boxes. Reports intermittent radiation into her legs. She reports problems sleeping due to the pain. Denies any dysuria or problems urinating. Denies any loss of bowel or bladder, control, no saddle anesthesia. She has been taking ibuprofen and using a massage gun. L spine XR ordered, lidocaine patch and UPT. Patient discharged in hemodynamically stable condition. Patient given 3 tablets of Flexeril here in the department. Discussed tricked return instructions verbalized understanding. This text was generated using [employer] dictation system, please disregard any oddities of phrase or misspellings. Imaging Data Radiologic Study: Imaging: X-Ray Radiologist's impression: EXAM: XR LUMBAR SPINE COMPLETE CLINICAL HISTORY: Low back pain. TECHNIQUE: 2D digital imaging was performed of the lumbar spine. Six images were obtained. AP, lateral, right oblique, left oblique and L5-S1 spot views were obtained. COMPARISON: No exams were available for comparison FINDINGS: BONES: No fracture or destructive lesion. Vertebral bodies are unremarkable. No facet hypertrophy identified. DISKS: Intervertebral disc spaces are maintained. ALIGNMENT: Lumbar spinal alignment is within normal limits. No spondylolysis or spondylolisthesis. SOFT TISSUE: Normal. IMPRESSION: Unremarkable radiographs of the lumbar spine. Quality:SDOH Health Related Social Needs: Health related social needs feeling lonely/isolated (Z60.8) PFSH All Active Problems (Updated 10/30/24 @ 17:17 by Belen Rubio NP) Lumbar back pain (Acute) Skin lesion of back (Acute) Skin tag (Acute) PCP note states left groin Lateral dislocation of right patella (Acute 06/19/23) Medical History Superficial thrombophlebitis Vitamin D deficiency Iron deficiency Depressive disorder Social History Smoking/Tobacco Use Status: Never Smoking risk assessment performed?: Yes Alcohol Intake: never Drug use: Never Substance use type: does not use Housing: apartment Current gender identity: female Do you feel safe at home: Yes Do you feel safe in your relationship?: Yes
[2024-10-30 16:39] LABS: Bilirubin Negative (Negative); Blood Negative (Negative); Clarity Clear (Clear); Glucose Negative (Negative); Ketones Negative (Negative); Leukocyte Esterase Trace (Negative); Nitrite Negative (Negative); Specific Gravity >= 1.030 (1.005-1.025); Urobilinogen 0.2 mg/dL (Up to 0.2); pH 5.5 (5-8)
[2024-10-30 16:58] LABS: Bacteria Moderate HPF (Negative); C & S Indicated? No/Sq. Contamination; Casts Negative LPF (Negative); Crystals Negative HPF (Negative); Epithelial Cells Moderate HPF (Negative); Mucus Negative (Negative); RBC 0-2 HPF (0-2)
[2024-10-30] MEDS: Lidocaine 5% Patch 1 PATCH TP (17:07)
[2024-10-30] MEDS: Cyclobenzaprine 10 MG TAB, 3 TABS/BTL PO (17:32)
== END 2024-10-30 17:39 | disposition home or self-care (01) ==
PROVIDERS: Emergency Provider Registered Nurse Emergency; PCP Physician Assistant Medical
DX: M54.50 Low back pain, unspecified (principal)
CPT/HCPCS: 81025; 99284; 72110; 81003; 81015; 99283

== ENCOUNTER 2025-01-07 17:17 | Outpatient (REF) | payer OTHER, SELFPAY ==
[2025-01-07 20:08] LABS: Iron 62 ug/dL (50-170); Total Iron Binding Capacity 270 ug/dL (250-450); Transferrin Sat 23 % (15-50)
[2025-01-07 20:27] LABS: Ferritin 48 ng/mL (8-252); Vitamin D 25 Total 27 ng/mL (30-100)
== END 2025-01-07 17:18 | disposition home or self-care (01) ==
LOC: NCHCN 17:17
PROVIDERS: PCP Physician Assistant Medical; Visit Provider Physician Assistant Medical
DX: E61.1 Iron deficiency (principal); E55.9 Vitamin D deficiency, unspecified
CPT/HCPCS: 82306; 82728; 83540; 83550

== ENCOUNTER 2025-03-18 16:56 | Outpatient (REF) | payer OTHER, SELFPAY ==
[2025-03-18 19:34] LABS: Iron 62 ug/dL (50-170); Total Iron Binding Capacity 314 ug/dL (250-450); Transferrin Sat 20 % (15-50)
[2025-03-18 19:47] LABS: Ferritin 57 ng/mL (8-252)
== END 2025-03-18 16:57 | disposition home or self-care (01) ==
LOC: NCHCN 16:56
PROVIDERS: PCP Physician Assistant Medical; Visit Provider Physician Assistant Medical
DX: E61.1 Iron deficiency (principal)
CPT/HCPCS: 82728; 83540; 83550

== ENCOUNTER 2025-06-22 08:05 | Emergency (ER) | payer OTHER, SELFPAY ==
[2025-06-22] VITALS (37 sets, daily range): BP systolic 108–137; BP diastolic 63–95; PULSE 53–91; RESP 12–25; TEMP 36.8; O2SAT 95–100
[2025-06-22 09:13] LABS: Abs Immature Grans 0.04 10^3/uL (0.0-0.06); HCT 38.5 % (36.0-46.0); HGB 12.7 g/dL (11.2-15.7); Immature Grans % 0.5 %; MCH 27.3 pg (27.0-33.0); MCHC 33.0 % (32.0-36.0); MCV 83 fL (80-95); MPV 11.7 fL (8.0-11.0); Platelet Count 214 10^3/uL (130-400); RBC 4.66 10^6/uL (3.93-5.22); RDW 13.2 % (11.7-14.6); RDW-SD 39.9 fL; WBC 8.43 10^3/uL (4.4-10.8)
[2025-06-22] MEDS: Normal Saline 50 ML (09:40)
[2025-06-22] MEDS: Famotidine 20 MG/2 ML VIAL IVP (09:40)
[2025-06-22 09:59] LABS: ALT 25 U/L (14-59); AST 14 U/L (15-37); Albumin 3.9 g/dL (3.4-5.0); Alkaline Phosphatase 86 U/L (46-116); Anion Gap 8.4 mmol/L (3-11); BUN 10 mg/dL (7-18); Bilirubin, Total 0.4 mg/dL (0.2-1.0); CO2 27.6 mmol/L (21.0-32.0); Calcium 9.4 mg/dL (8.5-10.1); Chloride 104 mmol/L (98-107); Estimated GFR 105.45 (mL/min/1.73m2); Glucose 112 mg/dL (74-106); Lipase 34 U/L (<78); Potassium 4.1 mmol/L (3.5-5.1); Sodium 140 mmol/L (136-145); Total Protein 7.8 g/dL (6.4-8.2)
[2025-06-22 10:03] LABS: Troponin I < 4 ng/L (<or=51)
[2025-06-22] MEDS: Pantoprazole 40 MG VIAL IVP (10:19)
[2025-06-22 10:44] LABS: Troponin I < 4 ng/L (<or=51)
[2025-06-22] MEDS: MYLANTA 30 ML, LIDOCAINE 2% VISCOUS UD 15 ML PO (11:51)
--- NOTE | 2025-06-22 13:45 | RT.EKG_ITS ---
APPROVED REPORT Exam: Resting ECG Reason for Exam: chest pain Patient Location: E HR:77 bpm ECG Measurements Heart Rate 77 AXIS CO 114 P 41 QRSd 87 QRS 21 QT 383 T 21 QTc 433 Conclusion Sinus rhythm...normal P axis, V-rate 60- 99
--- NOTE | 2025-06-22 14:14 | W.ED.GENAD ---
Discharge Plan Disposition Patient Disposition: Home Condition: Stable Discharge Details Clinical Impression: Acute epigastric pain Primary Care Provider: Ilsa Chatman ED Provider: Nellie Ojeda Home Meds and New Rx's Prescriptions: New esomeprazole magnesium 40 mg capsule,delayed release(DR/EC) 40 mg PO DAILY Qty: 60 0RF famotidine [Pepcid] 20 mg tablet 20 mg PO QHS Qty: 30 0RF sucralfate 1 gram tablet 1 g PO BID Qty: 30 0RF Continued ferrous sulfate [FeroSul] 325 mg (65 mg iron) tablet 325 mg PO DAILY fluoxetine 10 mg capsule 10 mg PO DAILY furosemide 20 mg tablet 20 mg PO DAILY PRN melatonin 2.5 mg Tablet,Chewable 2.5 mg PO QHS cholecalciferol (vitamin D3) 50 mcg (2,000 unit) capsule 50 mcg PO DAILY Patient Comments: TAKE ONE CAPSULE BY MOUTH EVERY DAY DIRECTED Discontinued omeprazole 20 mg capsule,delayed release(DR/EC) 20 mg PO DAILY Discharge Instructions Instructions: Abdominal Pain, Adult ED Additional Instructions: Talk to your doctor about a GI referral, there is a automation control technician that both at [facility] and in [facility] Weight loss may help with your heartburn, talk to your doctor about potential options Try not to eat past 7 PM and stay away from carbohydrates in the evening as well as fatty foods spicy and acidic foods 6 you are drinking eight 8 ounce glasses of water daily Stop taking the omeprazole I have switched you to several different medications HPI General Date/Time Provider Initiated Documentation: 06/22/25 08:11. HPI Narrative: This 24-year-old female presents with report of epigastric pain rating into her chest which started this morning. states she has had endoscopy 2 years ago for similar. Takes omeprazole daily. Was unable to take her omeprazole secondary to pain today. Did have a hash brown and eggs at 730 last night does not normally eat quite this late. Denies any right upper quadrant pain or surgical history. Denies any chance of . Had 1 episode of vomiting predominantly as she was attempting to make herself improved. Related Data Home Medications ?Medication ?Instructions ?Recorded ?Confirmed melatonin 2.5 mg chewable tablet 2.5 mg PO QHS 06/19/23 06/22/25 cholecalciferol (vitamin D3) 50 50 mcg PO DAILY 06/15/24 06/22/25 mcg (2,000 unit) capsule ferrous sulfate 325 mg (65 mg 325 mg PO DAILY 10/22/24 06/22/25 iron) tablet (FeroSul) fluoxetine 10 mg capsule 10 mg PO DAILY 10/22/24 06/22/25 furosemide 20 mg tablet 20 mg PO DAILY PRN 10/22/24 06/22/25 esomeprazole magnesium 40 mg 40 mg PO DAILY #60 caps 06/22/25 capsule,delayed release famotidine 20 mg tablet (Pepcid) 20 mg PO QHS #30 tabs 06/22/25 sucralfate 1 gram tablet 1 g PO BID #30 tabs 06/22/25 Previous Rx's ?Medication ?Instructions ?Recorded esomeprazole magnesium 40 mg 40 mg PO DAILY #60 caps 06/22/25 capsule,delayed release famotidine 20 mg tablet (Pepcid) 20 mg PO QHS #30 tabs 06/22/25 sucralfate 1 gram tablet 1 g PO BID #30 tabs 06/22/25 Allergies Allergy/AdvReac Type Severity Reaction Status Date / Time mint AdvReac Mild Headache Verified 06/22/25 08:14 oranges Allergy Swelling/Ed Uncoded 06/22/25 08:14 talat General Stated Complaint: Chest Pain JOVAAN: 3 Exam Narrative Exam Narrative: Alert and orient in no acute distress, no right upper quadrant tenderness no flank tenderness no abdominal tenderness lungs clear to auscultation cardiac rate rhythm regular distal pulses intact all 4 extremities Course Vital Signs Vital signs: Vital Signs Temperature 36.8 C 06/22/25 08:08 Pulse 89 06/22/25 08:08 Respiratory Rate 18 06/22/25 08:08 Blood Pressure 120/86 06/22/25 08:08 Pulse Oximetry 99 06/22/25 08:08 Temperature 36.8 C 06/22/25 08:08 Temperature Source Oral 06/22/25 08:08 Pulse 58 L 06/22/25 11:46 Pulse 86 06/22/25 11:46 Respiratory Rate 34 H 06/22/25 11:46 Respiratory Effort Normal, Non-Labored 06/22/25 09:47 Respiratory Depth Normal 06/22/25 09:47 Respiratory Pattern Normal 06/22/25 09:47 Blood Pressure 114/72 06/22/25 11:46 Blood Pressure Mean 82 06/22/25 11:46 Pulse Oximetry 96 06/22/25 11:46 Lab/Test Results Lab/Test Results: Laboratory Tests Range/Units 06/22/25 06/22/25 06/22/25 08:12 09:04 10:05 WBC Cancelled 8.43 RBC Cancelled 4.66 Hgb Cancelled 12.7 Hct Cancelled 38.5 MCV Cancelled 83 MCH Cancelled 27.3 MCHC Cancelled 33.0 RDW Cancelled 13.2 Plt Count Cancelled 214 MPV Cancelled 11.7 H Immature Gran % Cancelled 0.5 Neutrophils % Cancelled 67.9 Band Neutrophils % Cancelled Lymphocytes % Cancelled 23.5 Atypical Lymphs % Cancelled Monocytes % Cancelled 5.8 Eosinophils % Cancelled 1.8 Basophils % Cancelled 0.5 Metamyelocytes % Cancelled Myelocytes % Cancelled Promyelocytes % Cancelled Other Cells % Cancelled Nucleated RBC % Cancelled 0.0 Absolute Neutrophils Cancelled 5.73 Absolute Lymphocytes Cancelled 1.98 Absolute Monocytes Cancelled 0.49 Absolute Eosinophils Cancelled 0.15 Absolute Basophils Cancelled 0.04 RBC Morphology Cancelled Polychromasia Cancelled Hypochromasia Cancelled Poikilocytosis Cancelled Basophilic Stippling Cancelled Anisocytosis Cancelled Microcytosis Cancelled Macrocytosis Cancelled Spherocytes Cancelled Tear Drop Cells Cancelled Ovalocytes Cancelled Stomatocytes Cancelled Perez-Dalton Bodies Cancelled Casey Cells/Echinocytes Cancelled Acanthocytes (Spur) Cancelled Schistocytes Cancelled Sodium Cancelled 140 Potassium Cancelled 4.1 Chloride Cancelled 104 Carbon Dioxide Cancelled 27.6 Anion Gap Cancelled 8.4 BUN Cancelled 10 Creatinine Cancelled 0.8 Est GFR (CKD-EPI 2020) Cancelled 105.45 Glucose Cancelled 112 H Calcium Cancelled 9.4 Total Bilirubin Cancelled 0.4 AST Cancelled 14 L ALT Cancelled 25 Alkaline Phosphatase Cancelled 86 Troponin I (<or=51) ng/L < 4 < 4 Total Protein Cancelled 7.8 Albumin Cancelled 3.9 Lipase (<78) U/L 34 Medical Decision Making 24-year-old female in no acute distress, afebrile and nontoxic, CBC and CMP do not show evidence of acute abnormality I do not feel like patient needs an abdominal ultrasound at this time. She will need close outpatient reassessment I will change her PPI to esomeprazole, sucralfate and Pepcid. POC negative. Feeling symptomatically improved after Protonix and Pepcid IV. Patient has had 2 negative troponins less than 4 which is reasonable and EKG that is nonischemic and able to tolerate p.o. at time of discharge home. Return precautions reviewed recheck with primary care physician in 24 to 48 hours recommended Quality:SDOH Health Related Social Needs: Health related social needs lonely/isolated PFSH All Active Problems (Updated 06/22/25 @ 11:20 by PAULA Gardner) Acute epigastric pain (Acute) Chafing (Acute) Skin lesion of back (Acute) Skin tag (Acute) PCP note states left groin Lateral dislocation of right patella (Acute 06/19/23) Medical History Superficial thrombophlebitis Vitamin D deficiency Iron deficiency Depressive disorder Social History Smoking/Tobacco Use Status: Never Smoking risk assessment performed?: Yes Alcohol Intake: never Drug use: Occasionally Substance use type: marijuana Housing: apartment Current gender identity: female Do you feel safe at home: Yes Do you feel safe in your relationship?: Yes
== END 2025-06-22 12:02 | disposition home or self-care (01) ==
PROVIDERS: Emergency Provider Physician Assistant; PCP Physician Assistant Medical
DX: R10.13 Epigastric pain (principal)
CPT/HCPCS: 99284; 99283; 36415; 96374; 96375; 80053; 83690; 93005; 84484; 85025; 93010; J2470

== ENCOUNTER 2025-09-21 14:53 | Outpatient (REF) | payer OTHER, SELFPAY ==
[2025-09-23 11:20] LABS: Chlamydia Result Negative (Negative); GC Result Negative (Negative)
== END 2025-09-21 14:54 | disposition home or self-care (01) ==
LOC: LBN 14:53
PROVIDERS: PCP Physician Assistant Medical; Visit Provider Obstetrics & Gynecology
DX: Z30.9 Encounter for contraceptive management, unspecified (principal); E66.01 Morbid (severe) obesity due to excess calories; Z20.2 Contact with and (suspected) exposure to infections with a predominantly sexual mode of transmission
CPT/HCPCS: 87491; 87591

== ENCOUNTER 2025-09-23 13:23 | Outpatient (REF) | payer OTHER, SELFPAY ==
[2025-09-23 17:14] LABS: ESR 13 mm/hr (0-20)
[2025-09-23 17:35] LABS: TSH 0.78 uIU/mL (0.55-4.78)
[2025-09-24 17:42] LABS: CRP, High Sensitivity 10.27 mg/L (See Note)
== END 2025-09-23 13:24 | disposition home or self-care (01) ==
LOC: NCHCN 13:23
PROVIDERS: PCP Physician Assistant Medical; Visit Provider Family Medicine
DX: R21 Rash and other nonspecific skin eruption (principal); E66.813 Obesity, class 3; Z68.42 Body mass index [BMI] 45.0-49.9, adult
CPT/HCPCS: 85652; 86141; 84443; 86038; 86160